=== PATIENT | male | born 1990 | race Caucasian/White ===

== ENCOUNTER 2017-08-29 17:04 | Emergency (ER) | payer SELFPAY | END 2017-08-29 17:57 | disposition home or self-care (01) | LOC: ERS 17:04 | DX: J30.2 Other seasonal allergic rhinitis (principal); F41.9 Anxiety disorder, unspecified; F32.9 Major depressive disorder, single episode, unspecified; F17.210 Nicotine dependence, cigarettes, uncomplicated; Z79.899 Other long term (current) drug therapy | CPT/HCPCS: 99283 ==

== ENCOUNTER 2018-04-12 15:39 | Emergency (ER) | payer SELFPAY | END 2018-04-12 16:02 | disposition home or self-care (01) | LOC: ERS 15:39 | DX: S01.81XA Laceration without foreign body of other part of head, initial encounter (principal); F41.9 Anxiety disorder, unspecified; F32.9 Major depressive disorder, single episode, unspecified; F17.210 Nicotine dependence, cigarettes, uncomplicated; Z79.899 Other long term (current) drug therapy; W01.198A Fall on same level from slipping, tripping and stumbling with subsequent striking against other object, initial encounter | CPT/HCPCS: 12011 ==

== ENCOUNTER 2019-09-30 14:49 | Emergency (ER) | payer SELFPAY ==
[2019-09-30] MEDS ORDERED: Ketorolac Tromethamine 30 MG/ML VIAL ONE (15:29)
--- NOTE | 2019-09-30 15:37 | CT ---
CT Facial Bones WO Con History: Face pain Comparison: None. Findings: There is a fracture of the right anterior maxillary wall and right orbital floor. A fractur e fragment from the anterior wall extends to the infraorbital foramen. No entrapment of the inferior rectus muscle. The right orbital wall fracture is centered at the infraorbital foramen due t o the impaction from the infraorbital rim displacement. Large volume right mucosal sinus thickening maxillary sinus. No retrobulbar hematoma. Mild right james orbital soft tissue swelling. The medial orbital wall and lateral orbital wall is intact as well as the orbital roofs. The mastoids are clear. The mandible is intact. Nasal bones are intact. Leftward deviated nasal septum with a lateral nasal spur. Chronic appearing fracture of the inferior vomer. Impression: 1. Impacted displaced fracture right anterior maxillary wall with the infraorbital rim fracture displ aced through the orbital floor crossing the infraorbital foramen. 2. Extensive right maxillary sinus muscle thickening with inspissated debris. 3. No entrapment of the right inferior rectus muscle. 4. Mild right periorbital soft tissue swelling. 5. Chronic appearing vomer fracture.
== END 2019-09-30 16:37 | disposition home or self-care (01) ==
LOC: ERS 14:49
DX: S02.40CA Maxillary fracture, right side, initial encounter for closed fracture (principal); S05.11XA Contusion of eyeball and orbital tissues, right eye, initial encounter; F20.9 Schizophrenia, unspecified; F31.9 Bipolar disorder, unspecified; F17.210 Nicotine dependence, cigarettes, uncomplicated; F41.9 Anxiety disorder, unspecified; Z79.899 Other long term (current) drug therapy; W22.8XXA Striking against or struck by other objects, initial encounter
CPT/HCPCS: 70486; 96372; J1885

== ENCOUNTER 2024-05-04 13:48 | Emergency (ER) | payer SELFPAY | END 2024-05-04 14:50 | disposition home or self-care (01) | LOC: ERS 13:48 | DX: M25.571 Pain in right ankle and joints of right foot (principal); F17.210 Nicotine dependence, cigarettes, uncomplicated; W52.XXXA Crushed, pushed or stepped on by crowd or human stampede, initial encounter; Y93.89 Activity, other specified; Z79.899 Other long term (current) drug therapy ==